=== PATIENT | male | born 1960 | race Two or more races ===

== ENCOUNTER → 2018-01-28 15:19 | Outpatient (CLI) | payer OTHER | END | disposition home or self-care (01) | LOC: D.NM 15:00 → D.RT 02-06 08:00 | DX: R06.02 Shortness of breath (principal); Z87.891 Personal history of nicotine dependence ==

== ENCOUNTER → 2018-02-04 14:43 | Outpatient (CLI) | payer OTHER | END | disposition home or self-care (01) | LOC: D.RT 14:43 | DX: R06.02 Shortness of breath (principal); Z87.891 Personal history of nicotine dependence ==